=== PATIENT | female | born 1955 | race Caucasian/White ===

== ENCOUNTER → 2024-04-01 13:44 | Outpatient (REF) | payer MEDICARE, OTHER, SELFPAY | LOC: WDC 13:44 | PROVIDERS: ATTENDING PHYSICIAN Nurse Practitioner Adult Health | DX: Z12.31 Encounter for screening mammogram for malignant neoplasm of breast (principal); Z78.0 Asymptomatic menopausal state | CPT/HCPCS: 77063; 77067; 77080 ==

== ENCOUNTER → 2025-05-14 13:09 | Outpatient (REF) | payer MEDICARE, SELFPAY | LOC: WDC 13:09 | PROVIDERS: ATTENDING PHYSICIAN Nurse Practitioner Adult Health | DX: Z12.31 Encounter for screening mammogram for malignant neoplasm of breast (principal) | CPT/HCPCS: 77063; 77067 ==